=== PATIENT | female | born 1985 | race Native Hawaiian/Other Pacific Islander ===

== ENCOUNTER 2017-10-04 09:57 | Day surgery (SDC) | payer OTHER ==
--- NOTE | 2017-10-04 11:44 | CP.SDSHP ---
Same Day Surgery H & P - History Proposed Procedure: US guided FNA of neck node Pre-Op Diagnosis: cervical lymphadenopathy - Physical Exam Mental Status: Alert & Oriented x3 Neuro: WNL Heart: WNL Lungs: WNL - Impression Impression: Pt with extensive right and left jugular chain lymphadenopathy. Plan US guided FNA. Pt. Evaluated Today:Candidate for Anesthesia & Procedure: No Short Stay Discharge - Short Stay Discharge Admitting Diagnosis/Reason for Visit: NECK MASS Disposition: HOME/ ROUTINE
--- NOTE | 2017-10-04 11:46 | PCM.SURG1 ---
Surgeon's Initial Post Op Note - Surgeon's Notes Surgeon: Brandon Herman MD Oil Changer: NONE Type of Anesthesia: Local Pre-Operative Diagnosis: Lymphadenopathy Operative Findings: US showed extensive right and to a lesser extent let jugular chain lymphadenopathy. Post-Operative Diagnosis: Lymphadenopathy Operation Performed: US guided FNA Specimen/Specimens Removed: 25 g FNA x 6 passes sent for histology and flow cytometry. Estimated Blood Loss: EBL {In ML}: 1 Blood Products Given: N/A Drains Used: No Drains Post-Op Condition: Good Date of Surgery/Procedure: 10/04/17 Time of Surgery/Procedure: 11:40
[2017-10-04 11:47] VITALS: BMI 22.4
--- NOTE | 2017-10-04 12:03 | US ---
PROCEDURE: Date of procedure: 10/04/2017 Procedure: Ultrasound-guided FNA of right supraclavicular lymph node, CPT 96747 Ultrasound guidance for biopsy, [id number] Medications: 3CC 1% Lidocaine HISTORY: Multiple cervical lymph nodes with a 1.6 cm right neck lymph node. TECHNIQUE: Following informed consent and procedure time-out, limited ultrasound patient's right neck demonstrates multiple enlarged lymph nodes along the jugular chain which are ovoid shape and hypoechoic. Largest right node in the mid neck measures 1.6 centimeters. The patient's neck was prepped and draped in the usual sterile fashion. The skin was anesthetized with 1 percent lidocaine. Ultrasound-guided fine needle aspiration was then performed using a 25 gauge needle. A total of 6 passes were made into the lymph node under direct ultrasound guidance. FNA specimens were obtained and sent for routine pathology and flow cytometry. A post biopsy ultrasound showed no hematoma IMPRESSION: Ultrasound-guided biopsy of enlarged right neck lymph node.
== END 2017-10-04 12:30 | disposition home or self-care (01) ==
LOC: C.SPRAD 09:57
PROVIDERS: ATTEND Radiology Vascular & Interventional Radiology
DX: R59.0 Localized enlarged lymph nodes (principal)